=== PATIENT | male | born 1930 | race Two or more races ===

== ENCOUNTER 2021-06-14 08:50 | Outpatient (CLI) | payer OTHER ==
[~2021-06-14 08:50] MED LIST: CENTRUM; FINASTERIDE 5 MG; GEMFIBROZIL; GLYBURIDE 5 MG; LISINOPRIL 5 MG; METFORMIN 1000MG; SIMVASTATIN 40MG; [UNRECOGNIZED DRUG - OTHER]; [UNRECOGNIZED DRUG - OTHER]
== END 2021-06-14 09:00 | disposition home or self-care (01) ==
LOC: PPH VACUNA 08:50
PROVIDERS: ATTEND Emergency Medicine Pediatric Emergency Medicine
DX: Z23 Encounter for immunization (principal)